=== PATIENT | female | born 1955 | race Caucasian/White ===

== ENCOUNTER 2021-09-29 19:04 | Inpatient (IN) | payer OTHER ==
[~2021-09-29] VITALS: Ht 172.7 cm; Wt 84.8 kg
[~2021-09-29 19:04] MED LIST: AMARYL1 MG PO; ANTIVERT 12.512.5 MG PO; ANTIVERT 25MG T25 MG PO; BACTRIM DS TAB1 EACH PO; GLIPIZIDE ER2.5 MG PO; GLUCOPHAGE 500500 MG PO; LISINOPRIL10 MG PO; MOBIC15 MG PO; NEURONTIN100 MG PO; VENTOLIN HFA 66.7 GM INH; VIBRAMYCIN100 MG PO
[2021-09-29 19:56] LABS: HEMOGLOBIN 13.1 gm/dl (12.3-15.3); RED BLOOD COUNT 4.85 M/UL (4.00-5.10); WHITE BLOOD COUNT 18.6 K/UL (4.5-11.0)
[2021-09-29 20:26] LABS: BUN/CREATININE RATIO 35 (0-10)
[2021-09-30 04:14] LABS: HEMOGLOBIN 11.7 gm/dl (12.3-15.3); WHITE BLOOD COUNT 15.8 K/UL (4.5-11.0)
[2021-09-30 04:18] LABS: RED BLOOD COUNT 4.31 M/UL (4.00-5.10)
[2021-09-30 04:41] LABS: BUN/CREATININE RATIO 51 (0-10)
[2021-09-30] MEDS ORDERED: LISINOPRIL10 MG PO (10:22)
[2021-09-30] MEDS ORDERED: JANUVIA50 MG PO (10:23)
[2021-09-30] MEDS ORDERED: LEVOFLOXACIN500 MG PO (10:24)
[2021-09-30] MEDS ORDERED: PREDNISONE10 MG PO (10:25)
[2021-09-30] MEDS ORDERED: PROAIR HFA8.5 GM INH (10:25)
[2021-09-30] MEDS ORDERED: FARXIGA5 MG PO (10:26)
[2021-09-30] MEDS ORDERED: METFORMIN HCL500 M2 PO (10:26)
[2021-09-30] MEDS ORDERED: GLIMEPIRIDE1 MG PO (10:26)
[2021-09-30] MEDS ORDERED: ZOCOR40 MG PO (10:27)
[2021-10-01 04:00] LABS: HEMOGLOBIN 11.1 gm/dl (12.3-15.3); RED BLOOD COUNT 4.1 M/UL (4.00-5.10); WHITE BLOOD COUNT 19.3 K/UL (4.5-11.0)
[2021-10-01 04:17] LABS: BUN/CREATININE RATIO 57 (0-10)
[2021-10-01 21:45] LABS: ACINETOBACTER BAUMANNII Not Detected (Negative); CANDIDA ALBICANS Not Detected (Negative); CANDIDA KRUSEI Not Detected (Negative); CANDIDA TROPICALIS Not Detected (Negative); ENTEROCOCCUS Not Detected (Negative); ESCHERICHIA COLI Not Detected (Negative); HAEMOPHILUS INFLUENZAE Not Detected (Negative); KLEBSIELLA OXYTOCA Not Detected (Negative); KLEBSIELLA PNEUMONIAE Not Detected (Negative); KPC-CARBAPENEM-RESISTANCE GENE Not Detected (Negative); PROTEUS Not Detected (Negative); PSEUDOMONAS AERUGINOSA Not Detected (Negative); SERRATIA MARCESANS Not Detected (Negative); STAPHYLOCOCCUS Not Detected (Negative); STAPHYLOCOCCUS AUREUS Not Detected (Negative); STREP AGALACTIAE (GROUP B) Not Detected (Negative); STREP PYOGENES (GROUP A) Not Detected (Negative); STREPTOCOCCUS Not Detected (Negative); mecA (METHICILLIN RESIST GENE Not Detected (Negative); vanA/B (VANCOMYCIN RESIST GENE Not Detected (Negative)
[2021-10-02 04:50] LABS: HEMOGLOBIN 11.3 gm/dl (12.3-15.3); RED BLOOD COUNT 4.12 M/UL (4.00-5.10); WHITE BLOOD COUNT 17.3 K/UL (4.5-11.0)
[2021-10-02 05:05] LABS: BUN/CREATININE RATIO 46 (0-10)
--- NOTE | 2021-10-02 13:35 | NUR ---
PT GONE TO CT AT THIS TIME
--- NOTE | 2021-10-02 17:35 | NUR ---
SX HERE TO GET PT AT THIS TIME , PT WILL GO TO ICU AFTER SX,PT ON CARDIZEM AT 7.5 , ALSO DIEGO at 33.3, started at 1230, pulled a bag for sx to start at 16.68 for remaining 18 hrs
[2021-10-02 21:13] LABS: BUN/CREATININE RATIO 47 (0-10)
[2021-10-03 05:24] LABS: HEMOGLOBIN 11.1 gm/dl (12.3-15.3); RED BLOOD COUNT 3.98 M/UL (4.00-5.10)
[2021-10-03 05:26] LABS: WHITE BLOOD COUNT 24.7 K/UL (4.5-11.0)
[2021-10-03 06:25] LABS: BUN/CREATININE RATIO 55 (0-10)
[2021-10-04 06:03] LABS: BUN/CREATININE RATIO 47 (0-10)
[2021-10-04 06:08] LABS: RED BLOOD COUNT 3.56 M/UL (4.00-5.10); WHITE BLOOD COUNT 17.8 K/UL (4.5-11.0)
[2021-10-05 05:23] LABS: HEMOGLOBIN 9.6 gm/dl (12.3-15.3); RED BLOOD COUNT 3.54 M/UL (4.00-5.10); WHITE BLOOD COUNT 15.9 K/UL (4.5-11.0)
[2021-10-05 06:37] LABS: BUN/CREATININE RATIO 27 (0-10)
[2021-10-07 03:05] LABS: HEMOGLOBIN 10.2 gm/dl (12.3-15.3); RED BLOOD COUNT 3.81 M/UL (4.00-5.10)
[2021-10-07 03:17] LABS: WHITE BLOOD COUNT 10.7 K/UL (4.5-11.0)
[2021-10-07 03:25] LABS: BUN/CREATININE RATIO 38 (0-10)
[2021-10-08 09:55] LABS: HEMOGLOBIN 11.6 gm/dl (12.3-15.3); RED BLOOD COUNT 4.29 M/UL (4.00-5.10); WHITE BLOOD COUNT 20.6 K/UL (4.5-11.0)
[2021-10-08 10:21] LABS: BUN/CREATININE RATIO 21 (0-10)
[2021-10-08] MEDS ORDERED: ELIQUIS 5 MG TAB5 MG PO (10:38)
[2021-10-08] MEDS ORDERED: DECADRON6 MG PO (10:42)
[2021-10-08] MEDS ORDERED: PERCOCET 5/325 T1 EA PO (11:03)
--- NOTE | 2021-10-08 11:14 | NUR ---
PT O2 SATURATION ROOM AIR = 85%
== END 2021-10-08 14:56 | disposition home health service (06) | DRG 853 ==
LOC: ER1 19:04 → PROG CARE 23:14 → CCU 23:14 → CDU 23:14 → MED SURG 4 23:14 → CCU 09-30 09:13 → MED SURG 4 09-30 16:21 → PROG CARE 10-02 00:12 → CCU 10-02 21:13 → PROG CARE 10-05 17:02
PROVIDERS: Family Medicine; Internal Medicine; Physician Assistant Medical; Surgery; ADMIT Internal Medicine
PROC: 3E03329 Introduction of Other Anti-infective into Peripheral Vein, Percutaneous Approach (ICD-10-PCS; principal; 2021-09-29)
PROC: 3E0333Z Introduction of Anti-inflammatory into Peripheral Vein, Percutaneous Approach (ICD-10-PCS; 2021-09-29)
PROC: 8E0ZXY6 Isolation (ICD-10-PCS; 2021-09-29)
PROC: XW033E5 Introduction of Remdesivir Anti-infective into Peripheral Vein, Percutaneous Approach, New Technology Group 5 (ICD-10-PCS; 2021-09-30)
PROC: 0DBN4ZZ Excision of Sigmoid Colon, Percutaneous Endoscopic Approach (ICD-10-PCS; 2021-10-02)
PROC: 3E043XZ Introduction of Vasopressor into Central Vein, Percutaneous Approach (ICD-10-PCS; 2021-10-02)
PROC: B24BZZZ Ultrasonography of Heart with Aorta (ICD-10-PCS; 2021-10-02)
DX: A41.89 Other specified sepsis (principal); U07.1 COVID-19; J12.82 Pneumonia due to coronavirus disease 2019; R65.20 Severe sepsis without septic shock; J96.01 Acute respiratory failure with hypoxia; J44.0 Chronic obstructive pulmonary disease with (acute) lower respiratory infection; K57.20 Diverticulitis of large intestine with perforation and abscess without bleeding; I48.20 Chronic atrial fibrillation, unspecified; E87.6 Hypokalemia; E11.9 Type 2 diabetes mellitus without complications; I10 Essential (primary) hypertension; E78.5 Hyperlipidemia, unspecified; R74.01 Elevation of levels of liver transaminase levels; F17.200 Nicotine dependence, unspecified, uncomplicated; F19.10 Other psychoactive substance abuse, uncomplicated; Z91.14 Patient's other noncompliance with medication regimen; Z88.0 Allergy status to penicillin; Z88.5 Allergy status to narcotic agent; Z88.8 Allergy status to other drugs, medicaments and biological substances; Z83.3 Family history of diabetes mellitus; Z80.3 Family history of malignant neoplasm of breast; Z79.4 Long term (current) use of insulin; Z79.899 Other long term (current) drug therapy; Z79.01 Long term (current) use of anticoagulants
CPT/HCPCS: ECHO; 0240U; 36415; 36600; 71045; 80048; 80053; 80202; 81001; 82550; 82553; 82728; 82803; 82962; 83605; 83735; 83880; 84100; 84132; 84484; 85025; 85027; 85379; 86140; 87040; 87086; 87150; 93005; 93306; 94002; 94003; 94640; 94664; 94760; 96365; 96366; 96367; 96368; 96375; 97116; 97116-GP-CQ; 97161; 97165; 97530; 97530-GP-CQ; 99285; C1751; C9113; J0248; J1100; J1650; J2001; J2060; J2185; J2250; J2270; J2370; J2405; J2704; J2930; J3010; J3370; J3475; J3480; J7030; J7060; J7070; J7120; Q9967

== ENCOUNTER 2021-10-24 13:23 | Inpatient (IN) | payer OTHER ==
[~2021-10-24] VITALS: Ht 165.1 cm; Wt 73.0 kg
[~2021-10-24 13:23] MED LIST changes: +DECADRON6 MG PO; +ELIQUIS 5 MG TAB5 MG PO; +FARXIGA5 MG PO; +GLIMEPIRIDE1 MG PO; +JANUVIA50 MG PO; +LEVOFLOXACIN500 MG PO; +METFORMIN HCL500 M2 PO; +PERCOCET 5/325 T1 EA PO; +PREDNISONE10 MG PO; +PROAIR HFA8.5 GM INH; +ZOCOR40 MG PO
[2021-10-24 14:10] LABS: HEMOGLOBIN 11.6 gm/dl (12.3-15.3); RED BLOOD COUNT 4.18 M/UL (4.00-5.10); WHITE BLOOD COUNT 7.6 K/UL (4.5-11.0)
[2021-10-24 14:30] LABS: BUN/CREATININE RATIO 26 (0-10)
[2021-10-24] MEDS ORDERED: ACYCLOVIR400 MG PO (18:39)
[2021-10-24] MEDS ORDERED: BENTYL 10MG CAP10 MG PO (18:40)
[2021-10-25 01:20] LABS: HEMOGLOBIN 11.1 gm/dl (12.3-15.3); RED BLOOD COUNT 4.01 M/UL (4.00-5.10)
[2021-10-25 01:41] LABS: BUN/CREATININE RATIO 25 (0-10)
--- NOTE | 2021-10-25 04:41 | NUR ---
PATIENT COMPLAINING OF DISCOMFORT, REPOSITIONED PATIENT WITH PILLOWS AND GAVE PAIN MEDS. PATIENT IS RESTING MORE COMFORTABLE AT THIS TIME.
[2021-10-26 02:52] LABS: HEMOGLOBIN 10.9 gm/dl (12.3-15.3)
[2021-10-26 03:16] LABS: BUN/CREATININE RATIO 27 (0-10)
[2021-10-27 06:51] LABS: HEMOGLOBIN 10.5 gm/dl (12.3-15.3); RED BLOOD COUNT 3.91 M/UL (4.00-5.10)
[2021-10-27 06:55] LABS: WHITE BLOOD COUNT 21.7 K/UL (4.5-11.0)
[2021-10-27 07:23] LABS: BUN/CREATININE RATIO 37 (0-10)
--- NOTE | 2021-10-27 14:51 | NUR ---
10/27/21 1330 IRRIGATED DRAINAGE PORT WITH 30 ML
[2021-10-28 03:07] LABS: HEMOGLOBIN 11.1 gm/dl (12.3-15.3); RED BLOOD COUNT 4.1 M/UL (4.00-5.10)
[2021-10-28 03:23] LABS: WHITE BLOOD COUNT 14.7 K/UL (4.5-11.0)
[2021-10-28 04:02] LABS: BUN/CREATININE RATIO 42 (0-10)
[2021-10-29 03:05] LABS: RED BLOOD COUNT 3.7 M/UL (4.00-5.10)
[2021-10-29 03:32] LABS: BUN/CREATININE RATIO 46 (0-10)
[2021-10-30 03:23] LABS: HEMOGLOBIN 10.2 gm/dl (12.3-15.3); RED BLOOD COUNT 3.79 M/UL (4.00-5.10); WHITE BLOOD COUNT 9.3 K/UL (4.5-11.0)
[2021-10-30 03:41] LABS: BUN/CREATININE RATIO 42 (0-10)
[2021-10-30] MEDS ORDERED: LOPRESSOR 25 MG25 MG PO (11:09)
[2021-10-30] MEDS ORDERED: PERCOCET 5/325 T1 EA PO (11:09)
== END 2021-10-30 15:38 | disposition home health service (06) | DRG 862 ==
LOC: ER1 13:23 → CDU 16:40 → M/S 16:40
PROVIDERS: Emergency Medicine; Internal Medicine; Internal Medicine Infectious Disease; Physician Assistant Medical; ADMIT Surgery
PROC: 3E03329 Introduction of Other Anti-infective into Peripheral Vein, Percutaneous Approach (ICD-10-PCS; 2021-10-24)
PROC: 0W9J30Z Drainage of Pelvic Cavity with Drainage Device, Percutaneous Approach (ICD-10-PCS; 2021-10-27)
PROC: 02HV33Z Insertion of Infusion Device into Superior Vena Cava, Percutaneous Approach (ICD-10-PCS; principal; 2021-10-29)
PROC: B548ZZA Ultrasonography of Superior Vena Cava, Guidance (ICD-10-PCS; 2021-10-29)
DX: T81.44XA Sepsis following a procedure, initial encounter (principal); A41.51 Sepsis due to Escherichia coli [E. coli]; Z16.11 Resistance to penicillins; Z20.822 Contact with and (suspected) exposure to COVID-19; E11.9 Type 2 diabetes mellitus without complications; I10 Essential (primary) hypertension; F17.210 Nicotine dependence, cigarettes, uncomplicated; E78.5 Hyperlipidemia, unspecified; Y83.8 Other surgical procedures as the cause of abnormal reaction of the patient, or of later complication, without mention of misadventure at the time of the procedure; R53.81 Other malaise; D75.839 Thrombocytosis, unspecified; I48.0 Paroxysmal atrial fibrillation; J44.9 Chronic obstructive pulmonary disease, unspecified; Z93.3 Colostomy status; Z79.01 Long term (current) use of anticoagulants; Z79.82 Long term (current) use of aspirin; Z88.5 Allergy status to narcotic agent; Z88.0 Allergy status to penicillin; Z88.8 Allergy status to other drugs, medicaments and biological substances; Z83.3 Family history of diabetes mellitus; Z80.3 Family history of malignant neoplasm of breast; Z98.890 Other specified postprocedural states; Z90.49 Acquired absence of other specified parts of digestive tract; Z86.73 Personal history of transient ischemic attack (TIA), and cerebral infarction without residual deficits
CPT/HCPCS: 36415; 77012; 80048; 80053; 81001; 82962; 83605; 83690; 83735; 85025; 85027; 85610; 85730; 86140; 87070; 87077; 87086; 87186; 87205; 94664; 94760; 96374; 96375; 96376; 97110; 97110-GP-CQ; 97116; 97161; 99285; C1729; C1751; J1335; J1650; J1956; J2185; J2250; J2270; J3010; Q9967; U0002

== ENCOUNTER → 2021-12-14 | Outpatient (CLI) | payer OTHER ==
[~2021-12-14] MED LIST changes: +ACYCLOVIR400 MG PO; +AMOX TR-K CLV1 EAC4 PO; +BENTYL 10MG CAP10 MG PO; +FARXIGA10 MG PO; -FARXIGA5 MG PO; +LOPRESSOR 25 MG25 MG PO; +METRONIDAZOLE500 MG PO; +NEOMYCIN SULFA500 MG PO; +PEG-3350 AND4000 ML PO
[2021-12-14 14:14] LABS: HEMOGLOBIN 12.8 gm/dl (12.3-15.3); RED BLOOD COUNT 4.74 M/UL (4.00-5.10); WHITE BLOOD COUNT 8.3 K/UL (4.5-11.0)
[2021-12-14 14:42] LABS: BUN/CREATININE RATIO 24 (0-10)
== END ==
LOC: OPSV2 12:30
PROVIDERS: Anesthesiology
DX: Z01.818 Encounter for other preprocedural examination (principal); K57.32 Diverticulitis of large intestine without perforation or abscess without bleeding; E11.9 Type 2 diabetes mellitus without complications; I10 Essential (primary) hypertension; I48.91 Unspecified atrial fibrillation
CPT/HCPCS: 36415; 80048; 85025; 93005

== ENCOUNTER 2021-12-15 08:00 | Inpatient (IN) | payer OTHER ==
[~2021-12-15] VITALS: Ht 165.1 cm; Wt 82.6 kg
[2021-12-15] MEDS ORDERED: PROAIR HFA8.5 GM INH (08:35)
[2021-12-16] MEDS ORDERED: LISINOPRIL10 MG PO (11:19)
== END 2021-12-17 09:00 | disposition home or self-care (01) | DRG 345 ==
LOC: MED SURG 4 08:00 → OR 08:00 → MED SURG 4 08:05 → OR 16:10 → MED SURG 4 16:10
PROVIDERS: ADMIT Surgery
PROC: 0DSL4ZZ Reposition Transverse Colon, Percutaneous Endoscopic Approach (ICD-10-PCS; principal; 2021-12-15 07:30)
DX: K94.02 Colostomy infection (principal); K57.32 Diverticulitis of large intestine without perforation or abscess without bleeding; L03.319 Cellulitis of trunk, unspecified; F17.200 Nicotine dependence, unspecified, uncomplicated; E78.5 Hyperlipidemia, unspecified; J44.9 Chronic obstructive pulmonary disease, unspecified; I10 Essential (primary) hypertension; Z83.3 Family history of diabetes mellitus; Z80.3 Family history of malignant neoplasm of breast; Z79.899 Other long term (current) drug therapy; Z79.84 Long term (current) use of oral hypoglycemic drugs; Z88.5 Allergy status to narcotic agent; Z88.0 Allergy status to penicillin; Z88.8 Allergy status to other drugs, medicaments and biological substances
CPT/HCPCS: 82962; J0690; J1100; J1170; J2001; J2270; J2370; J2405; J2704; J3010; J7030; J7120